=== PATIENT | female | born 1970 | race Caucasian/White ===

== ENCOUNTER 2017-12-30 14:08 | Emergency (ER) | payer OTHER ==
[~2017-12-30] VITALS: Ht 175.3 cm; Wt 96.4 kg
[~2017-12-30 14:08] MED LIST: ESTRA PO; PROT40TA PO; ZOFR4TAB3 PO
[2017-12-30 14:10] VITALS: BP 158/81; PULSE 103; RESP 20; TEMP 98.7; O2SAT 97
[2017-12-30] MEDS ORDERED: RANI150T PO (14:20)
[2017-12-30] MEDS ORDERED: EEMTTAB2 PO (14:20)
[2017-12-30] MEDS ORDERED: ONDANSETRON ODT 4 MG TAB PO ONE (15:45)
[2017-12-30] MEDS ORDERED: CHERSYP2 PO (15:58)
[2017-12-30] MEDS ORDERED: ZOFR4TAB PO (15:58)
[2017-12-30] MEDS ORDERED: LEVS0.123 PO (15:58)
[2017-12-30] MEDS ORDERED: ZITHTAB PO (15:58)
--- NOTE | 2017-12-30 16:00 | PD ---
HPI Chief Complaint: Cold / Flu Symptoms Time Seen by Provider: 14:37 Travel History International Travel<30 days: No Contact w/Intl Traveler<30days: No Traveled to known affect area: No History of Present Illness HPI Patient presents with complaints of nausea and vomiting since yesterday. Additionally has diarrhea headache cough and general malaise. She has not received a flu shot. Unknown sick contacts. No new rashes. No tobacco history. Reports sinus pain and pressure. Denies . PFSH Past Medical History Arthritis: Yes (OSTEOARTHRITIS) Heart Rhythm Problems: No Cardiac Catheterization: No Cardiovascular Problems: No High Cholesterol: No Congestive Heart Failure: No Diabetes: No GERD: Yes Musculoskeletal: Yes (ARTHRITIS ) Thyroid Disease: Yes (NODULES FOUND AROUND THYROID ) Influenza Vaccination: No ?: Not : 3 Para: 1 Past Surgical History Appendectomy: Yes Section: Yes Cholecystectomy: Yes Coronary Artery Bypass Graft: No Hysterectomy: Yes Social History Alcohol Use: Yes (SOCIALLY) Tobacco Use: Yes (1/2 ppd) Substance Use: No Allergies-Medications (Allergen,Severity, Reaction): Coded Allergies: No Known Allergies (Unverified Adverse Reaction, Unknown, 12/30/17) Reported Meds & Prescriptions Reported Meds & Active Scripts Active Reported Ranitidine (Ranitidine HCl) 150 Mg Tab 150 Mg PO BID [place] Hs 0.625-1.25 mg Tablet (Estrogen,Ally/Me-Testosterone) 0.625 Mg-1.25 Mg Tablet 1 Tab PO HS Review of Systems General / Constitutional: Positive: Fever Eyes: No: Visual changes HENT: Positive: Headaches Cardiovascular: No: Chest Pain or Discomfort Respiratory: Positive: Cough, No: Shortness of Breath Gastrointestinal: Positive: Nausea, Vomiting, No: Abdominal Pain Genitourinary: No: Dysuria Musculoskeletal: No: Pain Skin: No Rash Neurologic: No: Weakness Psychiatric: No: Depression Endocrine: No: Polydipsia Hematologic/Lymphatic: No: Easy Bruising Physical Exam Narrative GENERAL: Well-nourished, well-developed patient. SKIN: Focused skin assessment warm/dry. HEAD: Normocephalic. EYES: No scleral icterus. No injection or drainage. Nares are erythematous with tenderness over bilateral maxillary sinuses NECK: Supple, trachea midline. No JVD or lymphadenopathy. CARDIOVASCULAR: Regular rate and rhythm without murmurs, gallops, or rubs. RESPIRATORY: Breath sounds equal bilaterally. No accessory muscle use. GASTROINTESTINAL: Abdomen soft, non-tender, nondistended. MUSCULOSKELETAL: No cyanosis, or edema. BACK: Nontender without obvious deformity. No CVA tenderness. Data Data Last Documented VS Vital Signs Date Time Temp Pulse Resp B/P (MAP) Pulse Ox O2 Delivery O2 Flow Rate FiO2 12/30/17 14:10 98.7 103 20 158/81 (106) 97 Orders Orders Influenzae A/B Antigen (12/30/17 14:37) Ondansetron Odt (Zofran Odt) (12/30/17 15:45) MDM Medical Decision Making Medical Screen Exam Complete: Yes Emergency Medical Condition: Yes Differential Diagnosis Influenza, sinusitis, nausea vomiting, cephalgia, cough, malaise Narrative Course Assessment and plan discussed with patient and at bedside. Influenza negative Diagnosis Primary Impression: Sinusitis Qualified Codes: J01.00 - Acute maxillary sinusitis, unspecified Additional Impressions: Nausea & vomiting Qualified Codes: R11.2 - Nausea with vomiting, unspecified Cephalgia Qualified Codes: R51 - Headache Cough Malaise Patient Instructions: General Instructions Additional Instructions: Rest fluids and Motrin. Discussed that this likely has a viral aspect, we'll treat symptomatically, antibiotic to cover sinusitis. Follow-up with PCP. Return emergently onset of new symptoms. Med/Other Pt SpecificInfo: Prescription(s) given Scripts Azithromycin (Zithromax Z-Paul) 250 Mg Dspk 250 MG PO DIRECTED for Infection, #1 DSPK 0 Refills 500 MG (2 tabs) day 1, then 1 tab days 2-5. Prov: Singh Momin MD 12/30/17 Guaifenesin-Codeine Liq (Cheratussin AC Liq) 100-10 Mg/5 Ml Syrp 10 ML PO Q4H Y for COUGH AND COLD SYMPTOMS, #120 ML 0 Refills Do not exceed 6 doses/24 hrs. Prov: Singh Momin MD 12/30/17 Hyoscyamine (Levsin) 0.125 Mg Tab 0.125 MG PO Q6H for Gastrointestinal disorders, #10 TAB 0 Refills Prov: Singh Momin MD 12/30/17 Ondansetron (Zofran) 4 Mg Tab 4 MG PO Q6HR Y for NAUSEA OR VOMITING, #10 TAB 0 Refills Prov: Singh Momin MD 12/30/17 Disposition: 01 DISCHARGE HOME Condition: Good Singh Momin MD Dec 30, 2017 16:00
== END 2017-12-30 16:13 | disposition home or self-care (01) ==
LOC: PHED 14:08
DX: J32.9 Chronic sinusitis, unspecified (principal); R11.2 Nausea with vomiting, unspecified; R51 Headache; R05 Cough; R53.81 Other malaise; M19.90 Unspecified osteoarthritis, unspecified site; K21.9 Gastro-esophageal reflux disease without esophagitis; E07.9 Disorder of thyroid, unspecified; F17.200 Nicotine dependence, unspecified, uncomplicated
CPT/HCPCS: 87804; 99283